=== PATIENT | male | born 1950 | race Caucasian/White ===

== ENCOUNTER 2016-05-23 20:50 | Emergency (ER) | payer MEDICAID ==
[~2016-05-23 20:50] MED LIST: ATOR40TA PO; BAYE325T12 PO; CARI350T20 PO; HYDR-2807 PO; LISIPOW PO; METOPROLOL PO; MS C15TA2 PO; NORCOTAB PO; PLAV75TA38 PO; SIMVPOW2 PO; SOMA350T PO
== END 2016-05-23 21:11 | disposition left against medical advice (07) ==
LOC: EDBD 20:50 → M ED 21:07
DX: T82.838A Hemorrhage due to vascular prosthetic devices, implants and grafts, initial encounter (principal); Z53.29 Procedure and treatment not carried out because of patient's decision for other reasons

== ENCOUNTER → 2018-12-18 | Outpatient (CLI) | payer OTHER ==
[~2018-12-18] MED LIST changes: -ATOR40TA PO; +ATOR40TA75 PO; +CARI1TAB7 PO; -CARI350T20 PO; +HYDR-3715 PO; -MS C15TA2 PO; +MS C15TA8 PO; -NORCOTAB PO; +PLAV1TAB2 PO; -PLAV75TA38 PO
--- NOTE | 2018-12-19 09:38 | REP ---
MRI LEFT SHOULDER: Supraspinatus tendon demonstrates mild tendinopathy/tendonitis. There is no evidence of a rotator cuff tendon tear. There are mild hypertrophic degenerative changes of the acromioclavicular joint. Acromion is type 2. Biceps tendon is within the bicipital groove with no evidence of significant tenosynovitis. There is no Hill Sach's deformity. The deltoid muscles demonstrates no abnormal signal. There is mild fraying of the biceps labral complex. There appears to be diffuse fraying of the inferior labrum. I suspect an anterior labral tear. There appears to be mild fluid extending medially along the anterior glenoid from the site of the tear. Mild subchondral cystic change is seen in the adjacent humeral head. There is no joint effusion. IMPRESSION :Mild supraspinatus tendinopathy/tendinitis. 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 There is fraying of the biceps labral complex and inferior labrum. There appears to be an anterior labral tear with fluid extending through the tear along the anterior glenoid. Electronically Signed by Juanjo Cruz MD 12/20/2018 11:03 A
== END ==
LOC: M RAD 17:03
PROVIDERS: ATTEND Family Medicine
DX: M19.012 Primary osteoarthritis, left shoulder (principal); M75.32 Calcific tendinitis of left shoulder